=== PATIENT | male | born 1975 ===

== ENCOUNTER 2020-09-22 11:25 | Outpatient (REF) | payer BC, SELFPAY ==
--- NOTE | ~2020-09-22 | US_ITS ---
EXAMINATION: US ABDOMEN LIMITED CLINICAL INFORMATION: 2 cm umbilical mass with impulse on Valsalva/cough. COMPARISON: None TECHNIQUE: Real-time imaging of the umbilical area, scanned supine and standing. FINDINGS: The visible umbilical mass appears to represent abdominal wall hernia with bowel within the small hernia sac. Wall defect measures approximately 1 cm in diameter. The hernia sac measures approximately 2.3 x 2.2 x 1.6 cm in size. No secondary signs of incarceration. US/US abdomen limited IMPRESSION: Umbilical mass appears to correspond to a small hernia containing some fat and bowel.
== END 2020-09-22 11:26 | disposition home or self-care (01) ==
LOC: HO.HMGCX 11:25
PROVIDERS: PCP Family Medicine; Visit Provider Family Medicine
DX: R19.09 Other intra-abdominal and pelvic swelling, mass and lump (principal)
CPT/HCPCS: 76705

== ENCOUNTER 2020-10-06 08:11 | Outpatient (REF) | payer BC, SELFPAY ==
[2020-10-06 11:23] LABS: Glucose Urine UA NEG (NEG); Leukocyte Esterase Urine NEG (NEG); Nitrite Urine NEG (NEG); Specific Gravity - Urine >= 1.030 (1.005-1.025); Urine Blood NEG (NEG); Urine Ketones NEG (NEG); Urine Protein NEG (NEG-TRACE)
[2020-10-06 11:36] LABS: Appearance Urine CLOUDY; Color Urine YELLOW
[2020-10-06 12:27] LABS: Alanine Aminotransferase 30 U/L (0-40); Albumin Level 4.3 g/dL (3.5-5.0); Alkaline Phosphatase 79 U/L (39-117); Anion Gap 11 (12-20); Aspartate Amino Transferase 23 U/L (5-37); Bilirubin Total 0.7 mg/dL (0.0-1.0); Blood Urea Nitrogen 14 mg/dL (9-16); Calcium 9.1 mg/dL (8.4-10.2); Carbon Dioxide 29 mmol/L (22-29); Chloride 104 mmol/L (96-108); Cholesterol 164 mg/dL; Estimated Glomerular Filt Rate > 60; HDL Cholesterol 39 mg/dL; LDL Cholesterol Calculated 103 mg/dl; Potassium 4.3 mmol/L (3.3-5.1); Sodium 140 mmol/L (135-145); Total Protein 7.3 g/dL (6.5-8.0); Triglycerides 111 mg/dL
[2020-10-06 12:44] LABS: Glucose Fasting 89 mg/dL (60-99)
[2020-10-06 12:51] LABS: TSH reflex Free T4 1.17 uIU/mL (0.32-4.0)
[2020-10-06 13:52] LABS: Prostate Specific Antigen Scr 1.32 ng/mL (<0.05-4.0)
== END 2020-10-06 08:12 | disposition home or self-care (01) ==
LOC: HO.HMGCLDS 08:11
PROVIDERS: PCP Family Medicine; Visit Provider Family Medicine
DX: Z00.00 Encounter for general adult medical examination without abnormal findings (principal); Z12.5 Encounter for screening for malignant neoplasm of prostate
CPT/HCPCS: 36415; 80053; 80061; 81003; 84153; 84443

== ENCOUNTER → 2020-10-27 13:56 | Outpatient (BNVA) | payer BC, SELFPAY | PROVIDERS: PCP Family Medicine; Visit Provider Internal Medicine ==

== ENCOUNTER → 2020-11-04 13:23 | Outpatient (BNVA) | payer BC, SELFPAY | PROVIDERS: PCP Family Medicine; Referring Provider Family Medicine; Visit Provider Surgery ==

== ENCOUNTER → 2020-11-15 13:13 | Outpatient (REF) | payer BC, SELFPAY | LOC: HO.SL 13:13 | PROVIDERS: PCP Family Medicine; Visit Provider Internal Medicine | DX: G47.33 Obstructive sleep apnea (adult) (pediatric) (principal); G47.10 Hypersomnia, unspecified | CPT/HCPCS: 95806 ==

== ENCOUNTER → 2020-12-22 14:24 | Outpatient (BNVA) | payer BC, SELFPAY | PROVIDERS: PCP Family Medicine; Visit Provider Internal Medicine ==

== ENCOUNTER 2021-01-26 07:33 | Day surgery (SDC) | payer BC, SELFPAY ==
[2021-01-18 15:45] VITALS: BMI 33.3
[2021-01-19 15:15] VITALS: BMI 30.1
--- NOTE | 2021-01-25 08:55 | HO.ANESPROP2 ---
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 (Acute) Screening for prostate cancer (Acute) Umbilical hernia (Acute) Low HDL (under 40) (Acute) Immunization counseling (Acute) NATE (obstructive sleep apnea) (Acute) Hypersomnolence (Acute) Obesity (BMI 30-39.9) (Acute) Past Medical History Medical History Hypersomnolence Obesity (BMI 30-39.9) NATE (obstructive sleep apnea) Surgical History Surgical History No pertinent past surgical history Social History Social History Housing: House Patient Tobacco Use Status: Never used Tobacco e-Cigarette/Vaping Use: Never Used Are you DNR?: No Advance Directives: No Advance Directives Information Provided: Yes service: No Current occupational status: employed Current occupation: [employer] Current occupational exposures/hazards: Yes (occasionally up in bucket) Meds Allergies Allergy/AdvReac Type Severity Reaction Status Date / Time pollen/dust Allergy Mild red eyes, Uncoded 01/19/21 15:14 runny nose, sneezing Home Medications Medication Instructions Recorded Confirmed Last Taken Type bupropion HCl 100 mg tablet,12 hr 100 mg PO DAILY 09/07/20 01/19/21 01/26/21 History sustained-release escitalopram oxalate 10 mg tablet 10 mg PO DAILY 09/07/20 01/19/21 01/26/21 History Exam Exam Date and Time: January 25, 2021 0855 Height,Weight and Vital Signs: Height 5 ft 10 in Weight 95.254 kg Pertinent Lab Results Pertinent Lab Results: Laboratory Tests 10/06/20 08:16 Sodium 140 Potassium 4.3 Chloride 104 Carbon Dioxide 29 BUN 14 Creatinine 1.06 Assessment and Plan Assessment Anesthesia Assessment: Chart Reviewed Documented by User: Sabra Kimbrough MD 01/26/21 08:43 PMFSH Past Medical History Medical History Hypersomnolence Obesity (BMI 30-39.9) NATE (obstructive sleep apnea) Surgical History Surgical History No pertinent past surgical history History of Problems with Anesthesia: No Social History Social History Housing: House Patient Tobacco Use Status: Never used Tobacco e-Cigarette/Vaping Use: Never Used Are you DNR?: No Advance Directives: No Advance Directives Information Provided: Yes service: No Current occupational status: employed Current occupation: [employer] Current occupational exposures/hazards: Yes (occasionally up in bucket) Meds Allergies Allergy/AdvReac Type Severity Reaction Status Date / Time pollen/dust Allergy Mild red eyes, Uncoded 01/19/21 15:14 runny nose, sneezing Home Medications Medication Instructions Recorded Confirmed Last Taken Type bupropion HCl 100 mg tablet,12 hr 100 mg PO DAILY 09/07/20 01/19/21 01/26/21 History sustained-release escitalopram oxalate 10 mg tablet 10 mg PO DAILY 09/07/20 01/19/21 01/26/21 History Exam Airway Mallampati Class: III TM Dist: >3cm Neck ROM: Full Loose/Missing/Broken Teeth: No Heart: RRR Lungs: CTA Assessment and Plan Assessment Anesthesia Assessment: Anesthesia Plan Discussed Final Anesthetic Review History of Problems with Anesthesia: No NPO: Yes ASA Class: III Final Preanesthetic Review: Meds/Allgs Chart Reviewed, Consent Obtained/Reviewed and Anes Risks/Benef Reviewed Patient Risk: Intermediate Procedure Risk: Low Anesthetic Plan Anesthetic Plan: GA Disposition: Standard PACU
[2021-01-26 08:14] VITALS: BP 143/103; PULSE 87; RESP 16; TEMP 36.5; O2SAT 99
[2021-01-26] MEDS: Lactated Ringers 1,000 ML 100 ML IVCONT (08:23)
--- NOTE | 2021-01-26 08:32 | MHC.SHP ---
Pre-Procedural Eval Section A Date of Service: 01/26/21 The patient is an INPATIENT: No Changes since office visit: Yes Patient answered all questions; No Cold of Flu in the past 2 weeks, No New Medical Problems and No Changes in Medication The History & Physical has been completed within 30 days and I have reviewed it.: No Section B Chief Complaint: umbilical hernia without obstruction Details of Present Illness: 45-year-old male patient presenting with a several week history of an umbilical mass noted by the patient. He denies any inciting event and denies any significant symptoms associated with this lump. He was evaluated by a his PCP and noted to have an umbilical hernia. Subsequent ultrasound of the abdomen confirmed an umbilical hernia possibly containing bowel. He denies nausea, vomiting, fever, chills, diarrhea, or constipation. He denies previous surgery in this location. Relevant Family History (Specify if Yes): No Relevant Social History: None Present Medications: see Short Stay Collaborative assessment Medical History: Significant History (Hypersomnolence Obesity (BMI 30-39.9) NATE (obstructive sleep apnea)) Allergies: Allergies Allergy/AdvReac Type Severity Reaction Status Date / Time pollen/dust Allergy Mild red eyes, Uncoded 01/19/21 15:14 runny nose, sneezing Review of Systems Sugical H&P ROS: Negative: Constitution, Cardiovascular, Respiratory, Neurological, Psychiatric, Hem-Onc, Allergic/Immunologic, Gastrointestinal, Genitourinary, Musculoskeletal, Integumentary, Endocrine and Eyes/Ears/Nose/Throat Exam Surgical H&P Exam: Normal: HEENT, Normal: Heart, Normal: Lungs, Normal: Extremities, Normal: Skin and Normal: Neurological and Significant Findings: Abdomen (umbilical hernia) Plan Diagnosis/Plan: Unchanged I have reviewed the history and physical and performed a pertinent physical examination on my patient. No changes have occurred unless specified.
--- NOTE | 2021-01-26 09:47 | W.PM.OPN ---
Operative Note Operative Note Date of Service: 01/26/21 Narrative: Preoperative diagnosis: Umbilical hernia Postoperative diagnosis: same Procedure: repair of umbilical hernia with mesh Surgeon: Anselmo Lawrence MD Ict Support Engineer: none Anesthesia: general LMA Indications for procedure: 45-year-old male patient presenting with a lump at the umbilicus increases in size with lifting and straining and reduces in the supine position. The patient denies significant pain but feels the lump has increased in size. He is requesting repair. Operative findings: Umbilical hernia measuring approximately 1.5 cm in diameter. This was repaired using a small round Ventralex mesh. Specimen: None Estimated blood loss: 2 mL Complications: none Procedure details: patient was brought to the OR placed in a supine position. After administering general anesthesia the patient's abdomen was prepped with ChloraPrep and draped in a sterile fashion. A surgical time-out was called the consent confirmed. Patient received preoperative antibiotics and Venodyne boots were in place. Local anesthesia consisting of 0.5% Sensorcaine was infiltrated around the umbilicus. A curvilinear incision was made in a transverse fashion in the upper surface of the umbilicus. This was carried down through subcutaneous tissue up to the hernia sac. The hernia sac was then dissected circumferentially down to the fascial defect. The sac was then reduced into the abdominal cavity. Mainly preperitoneal fat was noted within the hernia. Once the contents were reduced a preperitoneal space was dissected using electrocautery. A small Ventralex mesh was then obtained. This was placed in the preperitoneal space and secured to the fascia using 1 Tycron sutures. Fascia was then closed over the mesh using [id number] 1 Tycron sutures. Wounds were then irrigated with saline solution and suctioned dry. Additional local was infiltrated at this time. Dermis was then reapproximated using interrupted 3-0 Polysorb sutures. Skin was closed using a running subcuticular 4-0 Polysorb suture. Steri-Strips 2 x 2 gauze and Tegaderm were then applied. The patient tolerated the procedure well. Sponge, instrument, and needle counts reported as correct. The patient was transferred to PACU in stable condition.
[2021-01-26 09:59] VITALS: BP 105/55; PULSE 82; RESP 16; TEMP 36.9; O2SAT 99
[2021-01-26 10:04] VITALS: BP 111/67; PULSE 90; RESP 16; O2SAT 99
[2021-01-26 10:08] VITALS: BP 113/64; PULSE 90; RESP 16; O2SAT 94
[2021-01-26 10:13] VITALS: BP 134/84; PULSE 91; RESP 16; O2SAT 96
[2021-01-26] MEDS: Acetaminophen 325 MG TABLET 650 MG PO (10:14)
[2021-01-26] MEDS: oxyCODONE HCl Immed Release 5 MG TABLET 10 MG PO (10:15)
[2021-01-26 10:29] VITALS: BP 146/90; PULSE 92; RESP 18; O2SAT 96
== END 2021-01-26 11:07 | disposition home or self-care (01) ==
PROVIDERS: PCP Family Medicine; Visit Provider Surgery
PROC: (CPT 49585; principal; 2021-01-26 09:10)
DX: K42.9 Umbilical hernia without obstruction or gangrene (principal); G47.10 Hypersomnia, unspecified; F51.9 Sleep disorder not due to a substance or known physiological condition, unspecified; G47.33 Obstructive sleep apnea (adult) (pediatric); E66.9 Obesity, unspecified; Z68.33 Body mass index [BMI] 33.0-33.9, adult
CPT/HCPCS: 49585; C1781; J0690; J1100; J2250; J2405; J3010

== ENCOUNTER → 2021-02-03 13:49 | Outpatient (BNVA) | payer BC, SELFPAY | PROVIDERS: PCP Family Medicine; Referring Provider Family Medicine; Visit Provider Surgery ==

== ENCOUNTER → 2021-03-03 13:23 | Outpatient (BNVA) | payer BC, SELFPAY | PROVIDERS: PCP Family Medicine; Referring Provider Family Medicine; Visit Provider Surgery ==

== ENCOUNTER → 2021-05-04 10:42 | Outpatient (BNVA) | payer BC, SELFPAY | PROVIDERS: PCP Family Medicine; Visit Provider Internal Medicine ==

== ENCOUNTER 2022-01-31 08:40 | Outpatient (REF) | payer BC, SELFPAY ==
[2022-01-31 11:32] LABS: Appearance Urine Clear; Color Urine Yellow; Glucose Urine UA Negative (Negative); Leukocyte Esterase Urine Negative (Negative); Nitrite Urine Negative (Negative); Specific Gravity - Urine 1.025 (1.005-1.025); UMIC TRIGGER UA YES; Urine Blood Negative (Negative); Urine Ketones Negative (Negative); Urine Protein 30 (1+) mg/dL (Neg-Trace)
[2022-01-31 11:37] LABS: Bacteria Urine None Seen (None Seen); Hyaline Casts Urine 0-2 /LPF (0-2); RBC Urine 0-2 /HPF (0-2); Squamous Epithelial Cell Urine 0-2 /HPF (0-2); WBC Urine 0-5 /HPF (0-5)
[2022-01-31 13:23] LABS: Alanine Aminotransferase 47 U/L (0-40); Albumin Level 4.2 g/dL (3.5-5.0); Alkaline Phosphatase 93 U/L (39-117); Anion Gap 10 (12-20); Aspartate Amino Transferase 29 U/L (5-37); Bilirubin Total 0.5 mg/dL (0.0-1.0); Blood Urea Nitrogen 13 mg/dL (9-16); Carbon Dioxide 31 mmol/L (22-29); Chloride 104 mmol/L (96-108); Cholesterol 154 mg/dL; Estimated Glomerular Filt Rate > 60; Glucose Fasting 92 mg/dL (60-99); HDL Cholesterol 30 mg/dL; LDL Cholesterol Calculated 92 mg/dl; Potassium 3.9 mmol/L (3.3-5.1); Prostate Specific Antigen Scr 1.53 ng/mL (<0.05-4.0); Sodium 141 mmol/L (135-145); TSH reflex Free T4 0.78 uIU/mL (0.32-4.0); Total Protein 7.1 g/dL (6.5-8.0); Triglycerides 162 mg/dL
== END 2022-01-31 08:41 | disposition home or self-care (01) ==
LOC: HO.HMGCLDS 08:40
PROVIDERS: PCP Family Medicine; Visit Provider Family Medicine
DX: Z00.00 Encounter for general adult medical examination without abnormal findings (principal); Z12.5 Encounter for screening for malignant neoplasm of prostate
CPT/HCPCS: 36415; 80053; 80061; 81001; 84153; 84443

== ENCOUNTER → 2022-07-05 14:08 | Outpatient (BNVA) | payer BC, SELFPAY | PROVIDERS: PCP Family Medicine; Visit Provider Internal Medicine ==

== ENCOUNTER 2022-10-31 15:47 | Outpatient (AMB) | payer BC, SELFPAY ==
--- NOTE | 2022-10-31 15:58 | A.OFFPC_ITS ---
Vital Signs 10/31/22 15:59 Height 5 ft 10 in Weight 237 lb BMI 34.0 BP 110/58 L Blood Pressure Location Lt brachial Position Sitting Pulse 77 Pulse Source Pulse Oximeter Pulse Oximetry (%) 97 Oxygen Delivery Method Room Air Intake Visit Reasons: Lump on chest Intake Note: Patient is here with lump on chest for a couple of months, slight increase in size from the last time. Allergies pollen/dust Allergy (Mild, Uncoded 10/31/22 16:02) red eyes, runny nose, sneezing Tobacco use date assessed: 10/31/22 Dental Screening Did you have a dental visit in the last 12 months?: Yes Did you have a dental problem in the last 6 months where you did not have access to dental care?: No Was dental information given to patient?: Patient has dentist HPI Lump on chest HPI Details 47 y/o male presents today with complaints of a lump on his chest. He reports lump x2 months and reports it has slightly increased in size. [facility] Medical History Hypersomnolence Obesity (BMI 30-39.9) NATE (obstructive sleep apnea) Surgical History H/O umbilical hernia repair (01/26/21) No pertinent past surgical history Social History Housing: House Patient Tobacco Use Status: Never used Tobacco e-Cigarette/Vaping Use: Never Used Second Hand Smoke Exposure: No service: No Current occupational status: employed Current occupation: telecommunications Current occupational exposures/hazards: Yes (occasionally up in bucket) Cognitive needs: No Hearing needs: No Vision needs: No Questionnaire Thrive Questionnaire Date Thrive assessed: 11/28/21 MARINA-7 AMB Questionnaire MARINA-7 Date MARINA - 7 assessed: 11/28/21 Source: Developed by Drs. Henry Austin, Jackie Bautista, Sajan Navarro and colleagues, with an educational lisbeth from [employer]. Review of Systems Const Denies chills, Denies fatigue, Denies fever(s), Denies headache(s) and Denies weakness ENT Denies dizziness and Denies headache(s) Card Denies dyspnea Resp Denies cough, Denies dyspnea, Denies wheezing and Denies other (shortness of breath) Musc Denies numbness and Denies tingling Neuro Denies dizziness, Denies headache(s), Denies numbness, Denies tingling and Denies weakness Psych Denies anxiety and Denies depression Endo Denies fatigue Aller/Immun Denies wheezing Physical exam (Primary Care) Vital Signs: Last Vital Signs Pulse 77 10/31/22 15:59 BP 110/58 L 10/31/22 15:59 Pulse Ox 97 10/31/22 15:59 Oxygen Delivery Method Room Air 10/31/22 15:59 BMI result Body Mass Index 34.0 Tobacco/Smoking Status: Tobacco use Status Tobacco use date assessed 10/31/22 10/31/22 16:02 Patient Tobacco Use Status Never used Tobacco 10/31/22 16:02 e-Cigarette/Vaping Use Never Used 10/31/22 16:02 Thrive Assessment: Date of Thrive Assessment Date Thrive assessed 11/28/21 10/31/22 16:02 Const General: well developed; No acute distress Nutritional Appearance: well nourished Orientation/consciousness: patient oriented x3 HENMT Head: Yes normocephalic and Yes atraumatic Eyes General: appearance normal, both eyes and all related structures Pupils: Equal, round and reactive pupils present EOM: EOMs intact bilaterally Resp Effort & Inspection: normal respiratory effort Skin Other: 1.5cm lump on his chest lateral to mid sternum Neuro General: patient oriented x3 and gait normal Cranial nerves: Yes Equal, round and reactive pupils present Psych Affect: normal affect Assessment and Plan Assessment & Plan (1) Lump in chest: Code(s): R22.2 - Localized swelling, mass and lump, trunk Plan: 2 cm in diameter lump just lateral to sternum. This is primarily firm and without any erythema or tenderness. No drainage. Likely a sebaceous cyst. Patient would like a referral to Dermatology as we have discussed previously. Referred (2) Neoplasm of uncertain behavior of skin: Code(s): D48.5 - Neoplasm of uncertain behavior of skin Orders: Orders Comprehensive Jakin. Panel Fast Today Z00.00 - Encounter for general adult medical examination without abnormal findings Lipid Panel Today Z00.00 - Encounter for general adult medical examination without abnormal findings Prostate Specific Antigen Scr Today Z12.5 - Encounter for screening for malignant neoplasm of prostate TSH reflex Free T4 Today Z00.00 - Encounter for general adult medical examination without abnormal findings Microalbumin, Random (w Creat) Today I10 - Essential (primary) hypertension UA and rflx microscopic Today Z00.00 - Encounter for general adult medical examination without abnormal findings Referrals Dermatology Referral D48.5 - Neoplasm of uncertain behavior of skin Coding Level of Care Code Est Pt Level 3 (00144) Diagnoses Lump in chest R22.2 Neoplasm of uncertain behavior of skin D48.5
[2022-10-31 15:59] VITALS: BP 110/58; PULSE 77; O2SAT 97; BMI 34.0
== END 2022-10-31 16:16 | disposition home or self-care (01) ==
PROVIDERS: PCP Family Medicine; Visit Provider Family Medicine
DX: R22.2 Localized swelling, mass and lump, trunk (principal); D48.5 Neoplasm of uncertain behavior of skin
CPT/HCPCS: 99213

== ENCOUNTER 2023-12-27 08:23 | Outpatient (AMB) | payer BC, SELFPAY ==
--- NOTE | 2023-12-27 08:26 | MHC.PC.OV ---
Vital Signs 12/27/23 08:31 Height 5 ft 10 in Weight 245 lb 8 oz BMI 35.2 BP 112/78 Blood Pressure Location Lt brachial Position Sitting Respiration 14 Pulse 68 Pulse Source Pulse Oximeter Pulse Oximetry (%) 95 Oxygen Delivery Method Room Air Intake Visit Reasons: PE Intake Note: Physical Allergies pollen/dust Allergy (Mild, Uncoded 12/27/23 08:28) red eyes, runny nose, sneezing Tobacco use date assessed: 10/31/22 Dental Screening Dental Screen Date: 12/27/23 Did you have a dental visit in the last 12 months?: No Did you have a dental problem in the last 6 months where you did not have access to dental care?: No Was dental information given to patient?: Patient has dentist HPI HPI Comments History of Present Illness Details This is a 48-year-old male with a past medical history of NATE on CPAP, dyslipidemia, obesity and anxiety with depression presenting for annual physical exam. He is doing well on his current medications for anxiety and depression which are bupropion and Lexapro. He takes sildenafil as needed. He will have fasting labs completed. He declines flu vaccine today, but Tdap is administered. Patient is re-referred for screening colonoscopy. He is re-referred to see Dermatology for the sebaceous cyst on his left upper back and the center of his chest. ROS: Constitutional: No unexplained weight loss, fever, chills, fatigue or night sweats. Eyes: No vision changes, blurry vision, double vision, eye pain, eye redness, eye discharge. ENT: No hearing loss, sneezing, congestion, runny nose or sore throat. Respiratory: No shortness of breath, cough or sputum production. Cardiovascular: No chest pain, chest pressure or chest discomfort. No palpitations or pedal edema. Gastrointestinal: No anorexia, nausea, vomiting or diarrhea. No abdominal pain or blood in stool. Genitourinary: No dysuria, hematuria, urinary frequency. Neurologic: No headache, dizziness, syncope, unilateral weakness, ataxia, numbness or tingling in the extremities. Musculoskeletal: No muscle pain, back pain, joint pain or swelling. Hematologic/Lymphatics: No bleeding or bruising. No painful lymph nodes. Skin: No rash or itching. Endocrine: No cold or heat intolerance. No polyuria or polydipsia. Psychiatric: No SI/HI. Physical exam: Constitutional: Alert, in no distress. Head: Normocephalic. Eyes: Pupils are equal, round and reactive to light. Extraocular muscles intact. Ear, Nose and Throat: Canals clear. TMs normal. Normal nasal mucosa. No nasal discharge. No oral lesions. Neck: Supple, Full range of motion. No lymphadenopathy. No palpable thyroid masses. Respiratory: Clear to auscultation. Cardiovascular: S1 S2 regular. No murmurs. No carotid bruits. Gastrointestinal: Abdomen soft, non-tender, non-distended. Normal bowel sounds. No palpable masses. Genitourinary: Kim Raymond MA present cable way operator. No palpable masses or hernias. Neurologic: No focal neurological deficits. Symmetric patellar reflexes. Moves all extremities spontaneously. Sensation intact bilaterally. Skin: Sebaceous cyst on left upper back and the center of the chest. No fluctuance, discharge, erythema or warmth. Musculoskeletal: No gross deformities. Normal range of motion. Extremities: Warm and well perfused. No clubbing, cyanosis or edema. 3+ peripheral pulses bilaterally. Psychiatric: Normal mood and affect [facility] Medical History Hypersomnolence Obesity (BMI 30-39.9) NATE (obstructive sleep apnea) Surgical History H/O umbilical hernia repair (01/26/21) No pertinent past surgical history Social History Housing: House Patient Tobacco Use Status: Never used Tobacco e-Cigarette/Vaping Use: Never Used Second Hand Smoke Exposure: No service: No Current occupational status: employed Current occupation: [employer] Current occupational exposures/hazards: Yes (occasionally up in bucket) Cognitive needs: No Hearing needs: No Vision needs: No Questionnaire PHQ-9 Over the last 2 weeks, how often have you been bothered by any of the following problems? 1. Little interest or pleasure in doing things: not at all 2. Feeling down, depressed, or hopeless: not at all 3. Trouble falling or staying asleep, or sleeping too much: not at all 4. Feeling tired or having little energy: not at all 5. Poor appetite or overeating: not at all 6. Feeling bad about yourself - or that you are a failure or have let yourself or your family down: not at all 7. Trouble concentrating on things, such as reading the newspaper or watching television: several days 8. Moving or speaking so slowly that other people could have noticed. Or the opposite - being so fidgety or restless that you have been moving around a lot more than usual: not at all 9. Thoughts that you would be better off or of hurting yourself in some way: not at all Total score: 1 Depression Screening Interpretation: Negative Depression Screening Done: Yes 47208 - PHQ-9 Billing: Yes Source: Developed by Drs. Henry Austin, Jackie Bautitsa, Sajan Navarro and colleagues, with an educational lisbeth from [employer]. Thrive Questionnaire Date Thrive assessed: 12/27/23 I am a: Patient What is your living situation today?: I have a steady place to live Within the past 12 months, did the food you bought not last and you didn't have the money to get more?: Never true Within the past 12 months, did you worry whether your food would run out before you got money to buy more?: Never true Do you have trouble paying for medicines?: No Do you have trouble getting transportation to medical appointments?: No Do you have trouble paying your heating and electricity bill?: No Do you have trouble taking care of your child, family member or friend?: No Do you have trouble with day-to-day activities such as bathing, preparing meals, shopping, managing finances, etc.?: No Are you currently unemployed and looking for a job?: No Are you interested in more education?: No Please select the resources that you would like help with: None Currently or been in a relationship where the following occur: No concerns reported THRIVE Score: 0 AUDIT C Alcohol Use Questionnaire (AUDIT-C) 1. How often do you have a drink containing alcohol?: Never 3. How often do you have six or more drinks on one occasion?: Never Total Score: 0 MARINA-7 AMB Questionnaire MARINA-7 Date MARINA - 7 assessed: 12/27/23 Feeling nervous, anxious, or on edge: 0 = Not at all Not being able to stop or control worryin = Not at all Worrying too much about different things: 0 = Not at all Trouble relaxin = Not at all Being so restless that it is hard to sit still: 1 = Several days Becoming easily annoyed or irritable: 0 = Not at all Feeling afraid as if something awful might happen: 0 = Not at all Total MARINA-7 score (0-4 normal; 5-9 mild; 10-14 moderate; 15-21 severe): 1 Source: Developed by Drs. Henry Austin, Jackie Bautista, Sajan Navarro and colleagues, with an educational lisbeth from [employer]. MARINA-7 Assessment Billing MARINA-7 Assessment Tool: MARINA-7 Assessment 15390 Physical exam (Primary Care) Vital Signs: Last Vital Signs Pulse 68 12/27/23 08:31 Resp 14 12/27/23 08:31 BP 112/78 12/27/23 08:31 Pulse Ox 95 12/27/23 08:31 Oxygen Delivery Method Room Air 12/27/23 08:31 BMI result Body Mass Index 35.2 Tobacco/Smoking Status: Tobacco use Status Tobacco use date assessed 10/31/22 12/27/23 08:32 Patient Tobacco Use Status Never used Tobacco 12/27/23 08:32 e-Cigarette/Vaping Use Never Used 12/27/23 08:32 PHQ-9: PHQ-9 Score PHQ-9: Total score 1 12/27/23 08:32 Depression Screening Interpretation: Negative Thrive Assessment: Date of Thrive Assessment Date Thrive assessed 12/27/23 12/27/23 08:32 Currently or been in a relationship where the following occur: No concerns reported Coding Level of Care Code Est Pt Prev Care 40-64y(28036) Diagnoses Routine physical examination Z00.00 Additional Codes MARINA-7 Assessment Billing - MARINA-7 Assessment Tool: MARINA-7 Assessment 52485 ([id number]) Assessment & Plan Assessment & Plan (1) Routine physical examination: Code(s): Z00.00 - Encounter for general adult medical examination without abnormal findings Plan: Patient is seen today for a routine physical. As part of this visit we reviewed the following issues, which are considered and essential part of preventative health in this age group: - Testicular cancer screening, which includes self exam teaching - Screening for colon cancer - Discussed Prostate cancer screening - Blood pressure screening - Cholesterol screening - Nutritional and exercise counseling - Counseling of injury prevention including fire prevention, smoke alarms and seat belt usage - Screening for depression - Prevention of and/or testing for infectious diseases - Education about skin cancer - Recommendations about immunizations - Recommendation of an eye exam - Screening for substance abuse Plan Follow up in 1 year for CPE. Orders: Orders Lipid Panel Today E78.1 - Pure hyperglyceridemia, E78.5 - Hyperlipidemia, unspecified, R74.01 - Elevation of levels of liver transaminase levels, Z00.00 - Encounter for general adult medical examination without abnormal findings, Z13.6 - Encounter for screening for cardiovascular disorders Comprehensive Met. Panel Today E78.1 - Pure hyperglyceridemia, R74.01 - Elevation of levels of liver transaminase levels, Z00.00 - Encounter for general adult medical examination without abnormal findings, Z13.6 - Encounter for screening for cardiovascular disorders TDaP Immunization Today Z23 - Encounter for immunization TSH reflex Free T4 Today E78.1 - Pure hyperglyceridemia, R74.01 - Elevation of levels of liver transaminase levels, Z00.00 - Encounter for general adult medical examination without abnormal findings, Z13.6 - Encounter for screening for cardiovascular disorders Prostate Specific Antigen Today E78.1 - Pure hyperglyceridemia, R74.01 - Elevation of levels of liver transaminase levels, Z00.00 - Encounter for general adult medical examination without abnormal findings, Z12.5 - Encounter for screening for malignant neoplasm of prostate, Z13.6 - Encounter for screening for cardiovascular disorders Complete Blood Count no Diff Today E78.1 - Pure hyperglyceridemia, R74.01 - Elevation of levels of liver transaminase levels, Z00.00 - Encounter for general adult medical examination without abnormal findings, Z13.6 - Encounter for screening for cardiovascular disorders Referrals Dermatology Referral L72.3 - Sebaceous cyst Open Access Screening Colonoscopy Referral Z12.11 - Encounter for screening for malignant neoplasm of colon, Z12.12 - Encounter for screening for malignant neoplasm of rectum Medications: New Boostrix Tdap (diphth,pertus(acell),tetanus) 0.5 mL IM ONCE 0.5 mL 0RF NS Z23 - Encounter for immunization
[2023-12-27 08:31] VITALS: BP 112/78; PULSE 68; RESP 14; O2SAT 95; BMI 35.2
== END 2023-12-27 09:05 | disposition home or self-care (01) ==
LOC: HO.HMCFM 08:24
PROVIDERS: PCP Family Medicine; Visit Provider Physician Assistant Medical
DX: Z23 Encounter for immunization (principal); Z00.00 Encounter for general adult medical examination without abnormal findings

== ENCOUNTER → 2023-12-27 08:23 | Outpatient (BNVA) | payer BC, SELFPAY | PROVIDERS: PCP Family Medicine; Visit Provider Physician Assistant Medical | DX: Z00.00 Encounter for general adult medical examination without abnormal findings (principal); Z23 Encounter for immunization | CPT/HCPCS: 90471; 90715; 96127 ==